=== PATIENT | male | born 1965 | race Native Hawaiian/Other Pacific Islander ===

== ENCOUNTER 2020-04-08 17:52 | Emergency (ER) | payer OTHER ==
[~2020-04-08] VITALS: Ht 182.9 cm; Wt 87.1 kg
[2020-04-08 18:45] LABS: PLATELET COUNT 315 K/uL (142-355)
[2020-04-08 18:54] LABS: POTASSIUM 3.7 mmol/L (3.6-5.2)
[2020-04-08 20:35] VITALS: BP 112/77; TEMP 99.4
[2020-04-08] MEDS ORDERED: ASPIRIN 81 LOW81 MG PO (22:24)
[2020-04-08] MEDS ORDERED: TAMS0.4C PO (22:26)
[2020-04-08] MEDS ORDERED: PROMOD PO (22:29)
[2020-04-08] MEDS ORDERED: VENLAFAXINE150 M1 PO (22:34)
[2020-04-08] MEDS ORDERED: DIAZ5TAB20 PO (22:35)
[2020-04-08] MEDS ORDERED: QUET25TA2 PO (22:36)
[2020-04-08] MEDS ORDERED: GRALISE600 MG PO (22:38)
[2020-04-08] MEDS ORDERED: BACLOFEN20 MG PO (22:40)
[2020-04-08] MEDS ORDERED: TYLENOL325 MG PO (22:46)
[2020-04-08] MEDS ORDERED: ONDA4TAB3 PO (22:48)
[2020-04-08] MEDS ORDERED: PERCOCET1 TA1 PO ×2 (22:49→23:08)
[2020-04-08] MEDS ORDERED: NATURAL BALANCE1 SOL OTIC (22:56)
[2020-04-08] MEDS ORDERED: TACROLIMUS0.1 % EX (23:05)
[2020-04-08] MEDS ORDERED: MORPHINE PO (23:11)
[2020-04-08] MEDS ORDERED: MAGNSUS68 PO (23:13)
[2020-04-08] MEDS ORDERED: DOCU100C10 PO (23:14)
[2020-04-08] MEDS ORDERED: IMODIUM A-1 MG/7.5 M PO (23:20)
[2020-04-08] MEDS ORDERED: MELATONIN10 M1 PO (23:22)
== END 2020-04-08 20:35 | disposition other institution (70) ==
LOC: ED 17:52
PROVIDERS: Family Medicine
DX: R45.851 Suicidal ideations (principal); F32.89 Other specified depressive episodes; Z11.59 Encounter for screening for other viral diseases; Z04.6 Encounter for general psychiatric examination, requested by authority
CPT/HCPCS: 80053; 81000; 85027; 87635; 93005; 99283; U00003